=== PATIENT | female | born 1985 | race African-American/Black ===

== ENCOUNTER 2017-08-09 23:44 | Emergency (ER) | payer OTHER ==
[~2017-08-09] VITALS: Ht 167.6 cm; Wt 59.0 kg
[~2017-08-09 23:44] MED LIST: ALBUTEROL INH; BACTRIM DS TAB1 EACH PO; DOXYCYCLINE 10100 MG PO; IBUPROFEN 600600 M1 PO; IRON325 PO; NAPROSYN500 MG PO; NORCO 5-325 TA1 EACH PO; PRENATAL PO; PROVENTIL HFA6.7 G1 INH; ULTRAM 50MG TAB50 MG PO; VENTOLIN HFA INH8 GM IH; VICOPROFEN 2001 EACH PO; ZANTAC 150MG T150 MG PO
[2017-08-09 23:59] VITALS: BP 119/69
[2017-08-09 23:59] LABS: URINE BILIRUBIN NEGATIVE (Negative); URINE BLOOD 3+ (Negative); URINE CLARITY CLEAR; URINE COLOR YELLOW; URINE GLUCOSE-RANDOM* NEGATIVE (Negative); URINE KETONES TRACE (Negative); URINE NITRITE-REFLEX NEGATIVE (Negative); URINE PROTEIN (DIPSTICK) TRACE (Negative); URINE SPECIFIC GRAVITY 1.025 (1.005-1.035)
[2017-08-10] LABS: URINE LEUKOCYTES-REFLEX TRACE (Negative)
[2017-08-10 00:14] LABS: MUCUS 4-6 Moderate strn/LPF (None Seen); SQUAMOUS 0-3 Few /LPF (0-3)
[2017-08-10 00:15] LABS: BACTERIA-REFLEX 1-9 Few /HPF (None Seen); CASTS None Seen /LPF (None Seen); CRYSTALS None Seen /LPF (None Seen); URINE WBC-REFLEX 0-5 Rare /HPF (0-5)
[2017-08-10] MEDS ORDERED: NORCO 5-325 TA1 EACH PO (00:29)
[2017-08-10] MEDS ORDERED: SENNA-DOCUSATE1 EAC1 PO (00:29)
[2017-08-10] MEDS ORDERED: NORFLEX100 MG PO (00:29)
[2017-08-10] MEDS ORDERED: IBUPROFEN 600600 M1 PO (00:29)
== END 2017-08-10 01:27 | disposition home or self-care (01) ==
LOC: ER 23:44
PROVIDERS: Emergency Medicine
DX: S39.012A Strain of muscle, fascia and tendon of lower back, initial encounter (principal); S29.012A Strain of muscle and tendon of back wall of thorax, initial encounter; J45.909 Unspecified asthma, uncomplicated; K21.9 Gastro-esophageal reflux disease without esophagitis; V89.0XXA Person injured in unspecified motor-vehicle accident, nontraffic, initial encounter; Y93.89 Activity, other specified; Y92.89 Other specified places as the place of occurrence of the external cause; Y99.8 Other external cause status

== ENCOUNTER 2018-06-10 00:43 | Emergency (ER) | payer OTHER ==
[~2018-06-10] VITALS: Ht 170.2 cm; Wt 65.8 kg
[~2018-06-10 00:43] MED LIST changes: +NORFLEX100 MG PO; +SENNA-DOCUSATE1 EAC1 PO
[2018-06-10 01:13] VITALS: BP 126/81
== END 2018-06-10 01:20 | disposition home or self-care (01) ==
LOC: ER 00:43
DX: S00.451A Superficial foreign body of right ear, initial encounter (principal); K21.9 Gastro-esophageal reflux disease without esophagitis; J45.909 Unspecified asthma, uncomplicated; Z87.891 Personal history of nicotine dependence; X58.XXXA Exposure to other specified factors, initial encounter; Y93.89 Activity, other specified; Y92.89 Other specified places as the place of occurrence of the external cause; Y99.8 Other external cause status

== ENCOUNTER 2020-01-17 10:30 | Emergency (ER) | payer OTHER ==
[~2020-01-17] VITALS: Ht 170.2 cm; Wt 59.0 kg
[2020-01-17] MEDS ORDERED: PROAIR HFA8.5 GM INH (10:37)
[2020-01-17] MEDS ORDERED: HYDROXYZINE HCL50 MG PO (10:37)
[2020-01-17] MEDS ORDERED: TRAZODONE HCL50 MG PO (10:37)
[2020-01-17 11:21] VITALS: BP 93/52
== END 2020-01-17 11:22 | disposition home or self-care (01) ==
LOC: ER 10:30
DX: M79.601 Pain in right arm (principal); J45.909 Unspecified asthma, uncomplicated; K21.9 Gastro-esophageal reflux disease without esophagitis; Z87.891 Personal history of nicotine dependence; Z79.899 Other long term (current) drug therapy

== ENCOUNTER → 2020-01-22 | Emergency (ER) | payer OTHER ==
[~2020-01-22] VITALS: Ht 170.2 cm; Wt 59.0 kg
[~2020-01-22] MED LIST changes: +HYDROXYZINE HCL50 MG PO; +PROAIR HFA8.5 GM INH; +TRAZODONE HCL50 MG PO
[2020-01-22 17:25] VITALS: BP 112/73
== END ==
LOC: ER 17:01
DX: M79.621 Pain in right upper arm (principal); M79.644 Pain in right finger(s); Z53.21 Procedure and treatment not carried out due to patient leaving prior to being seen by health care provider

== ENCOUNTER 2020-07-03 12:48 | Emergency (ER) | payer OTHER ==
[~2020-07-03] VITALS: Ht 170.2 cm; Wt 65.8 kg
[2020-07-03 13:12] LABS: ABSOLUTE NEUTROPHILS 3.1 thou/uL (1.4-8.2); BASOPHILS 1.2 % (0.0-2.0); EOSINOPHILS 3.7 % (0.0-3.0); HEMATOCRIT 38.4 % (37.0-47.0); LYMPHOCYTES 34.6 % (24.0-44.0); MCH 34.3 pg (26.0-34.0); MCHC 33.8 g/dL (28.0-37.0); MCV 101.4 fL (80.0-100.0); MONOCYTES 5.8 % (1.0-8.0); PLATELET COUNT 252 thou/uL (150-400); POLYS 54.7 % (36.0-66.0); RBC 3.79 mil/uL (4.20-5.00); RDW 13.1 % (10.5-14.5); WBC 5.8 thou/uL (4.0-11.0)
[2020-07-03 13:32] LABS: ANION GAP 15 mmol/L (7-16); BUN 8 mg/dL (7-18); CALCIUM 8.9 mg/dL (8.5-10.1); CHLORIDE 105 mmol/L (98-107); CO2 20 mmol/L (21-32); CREATININE 0.8 mg/dL (0.6-1.0); GLUCOSE 106 mg/dL (74-106); POTASSIUM 3.4 mmol/L (3.5-5.1); SODIUM 140 mmol/L (136-145)
[2020-07-03 13:42] LABS: ALBUMIN 4.1 g/dL (3.4-5.0); SGOT 21 U/L (15-37); SGPT 23 U/L (30-65); TOTAL PROTEIN 7.7 g/dL (6.4-8.2); TROPONIN-I <0.06 ng/mL (<0.06)
[2020-07-03] MEDS ORDERED: ATIVAN0.5 M1 PO (14:57)
[2020-07-03 15:40] VITALS: BP 126/74
--- NOTE | 2020-07-04 06:51 | EKG ---
[address] [address] ELECTROCARDIOGRAM REPORT Name: MADELAINEBARBARAANNE MATUTE Room #: [facility] [id number] Admission: 07/03/20 Attend Phys: Discharge: 07/03/20 Date of : 81 Report #: [id number] [facility] ED Test Date: 2020-07-03 Test Time: 12:53:29 Pat Name: BARBARA BURKETT Department: Room: Gender: F Customer Quality Engineer: URVASHI : 1985 Requested By: Evelia Barboza Order Number: [id number] MD: Devang Daley Measurements Intervals [place] Rate: 69 P: 35 W[place]: 129 QRS: 51 QRSD: 98 T: -28 QT: 393 QTc: 421 Interpretive Statements Sinus arrhythmia Borderline T abnormalities, inferior leads Compared to ECG 07/03/2012 15:26:37 Sinus rhythm no longer present T-wave abnormality still present Electronically Signed On 07-04-2020 6:51:26 CDT by Devang Daley [email or web address] <ELECTRONICALLY SIGNED> By: Devang Daley MD, [facility] 07/04/20 [id number] Devang Daley MD, FACC /EPI
[2020-07-08] MEDS ORDERED: ATIVAN0.5 M1 PO (16:25)
== END 2020-07-03 15:40 | disposition home or self-care (01) ==
LOC: ER 12:48
PROVIDERS: Physician Assistant
DX: R07.89 Other chest pain (principal); E87.6 Hypokalemia; F43.9 Reaction to severe stress, unspecified; R11.0 Nausea; F41.9 Anxiety disorder, unspecified; J45.909 Unspecified asthma, uncomplicated; K21.9 Gastro-esophageal reflux disease without esophagitis; Z98.890 Other specified postprocedural states; Z79.899 Other long term (current) drug therapy; Z87.891 Personal history of nicotine dependence